=== PATIENT | female | born 1950 ===

== ENCOUNTER 2022-09-18 23:01 | Emergency (ER) | payer MEDICARE, MEDICAID, SELFPAY ==
[2022-09-18 23:02] VITALS: BP 164/70; BP 168/96; PULSE 75; PULSE 98; RESP 18; TEMP 36.8; O2SAT 96; O2SAT 98; BMI 30.5
--- NOTE | 2022-09-18 23:13 | ECG_ITS ---
Test Reason : CHEST PAIN Blood Pressure : / mmHG Vent. Rate : 071 BPM Atrial Rate : 071 BPM P-R Int : 178 ms QRS Dur : 072 ms QT Int : 412 ms P-R-T Axes : 005 029 030 degrees QTc Int : 447 ms Normal sinus rhythm Normal ECG No previous ECGs available Referred By: Generic ED Physician Electronically Signed By:Antelmo Sauer
[2022-09-18 23:34] LABS: Basophils Percent Auto 0.7 % (0-2); Eosinophils Absolute Auto 0.2 X10*3/uL (0.0-0.4); Eosinophils Percent Auto 4.1 % (0-4); Hematocrit 39.8 % (37.0-47.0); Imm Gran Abs Auto 0.01 X10*3/uL (0.00-0.03); Imm Gran Pct Auto 0.2 % (0.0-0.4); Lymphocytes Absolute Auto 2.6 X10*3/uL (1.2-4.9); Lymphocytes Percent Auto 44.7 % (20-40); MANUAL DIFF FLAG NO; Mean Corpuscular HGB Conc 32.7 g/dl (31.0-35.0); Mean Corpuscular Hemoglobin 25.7 pg (27.0-33.0); Mean Corpuscular Volume 78.8 fL (80.0-98.0); Mean Platelet Volume 9.2 fL (9.4-12.3); Monocytes Absolute Auto 0.7 X10*3/uL (0.1-1.2); Monocytes Percent Auto 11.3 % (2-11); Neutrophils Absolute Auto 2.3 x10*3/uL (2.0-8.3); Platelet Count 194 X10*3/uL (160-400); Red Blood Count 5.05 X10*6/uL (4.20-5.50); Red Cell Distribution Width 13.7 % (11.0-16.0); White Blood Count 5.8 X10*3/uL (4.8-10.8)
[2022-09-18 23:54] LABS: Alanine Aminotransferase 30 U/L (0-31); Alkaline Phosphatase 93 U/L (39-117); Anion Gap 12 (12-20); Aspartate Amino Transferase 30 U/L (5-31); Bilirubin Total 0.6 mg/dL (0.0-1.0); Blood Urea Nitrogen 15 mg/dL (9-16); Calcium 9.1 mg/dL (8.4-10.2); Carbon Dioxide 25 mmol/L (22-29); Chloride 109 mmol/L (96-108); Creatinine Clr Calc Pharmacy 65.6; Estimated Glomerular Filt Rate > 60; Glucose Random 115 mg/dL (60-115); Sodium 142 mmol/L (135-145)
[2022-09-19] VITALS: BP 159/77; PULSE 66; RESP 15; O2SAT 96
[2022-09-19 00:11] LABS: Troponin-I High Sensitivity 2.7 ng/L (<3.5-17.0)
[2022-09-19 00:42] VITALS: BP 162/77; PULSE 64; RESP 14; O2SAT 96
[2022-09-19 00:43] VITALS: BP 162/76; PULSE 72; RESP 16
[2022-09-19 00:43] LABS: Appearance Urine Clear; Color Urine Yellow; Glucose Urine UA Negative (Negative); Leukocyte Esterase Urine Negative (Negative); Nitrite Urine Negative (Negative); Specific Gravity - Urine <= 1.005 (1.005-1.025); Urine Blood Negative (Negative); Urine Ketones Negative (Negative); Urine Protein Negative (Neg-Trace)
--- NOTE | 2022-09-19 00:57 | ED.CHESTPAIN ---
HPI - Chest Pain General Chief Complaint: Chest Pain Stated Complaint: hypertension Time Seen by Provider: 09/19/22 00:39 Source: patient Mode of arrival: ambulatory Limitations: no limitations History of Present Illness HPI narrative: Patient comes to the emergency room complaining of high blood pressure. Patient states that yesterday she was feeling flushed, some neck pressure, patient's blood pressure was checked and it was above 160. Today, patient had similar symptoms, patient received 2 doses of baby aspirin. Patient denies chest pain or shortness of breath. No syncopal episodes Related Data Previous Rx's Medication Instructions Recorded hydrochlorothiazide 12.5 mg tablet 12.5 mg PO DAILY #30 tabs 09/19/22 Allergies Allergy/AdvReac Type Severity Reaction Status Date / Time No Known Allergies Allergy Verified 09/18/22 23:13 Review of Systems Review of Systems: Constitutional : No Weight loss, No Fever, No Chills, No Night Sweats, No Fatigue, No Malaise ENT/Mouth : No Hearing loss, No Ear Pain, No Nasal Congestion, No Sinus Pain, No Hoarseness, No sore throat, No Rhinorrhea, No Swallowing Difficulty Eyes: No Eye Pain, No Swelling, No Redness, No Foreign Body, No Discharge, No Vision Changes Cardiovascular : No Chest Pain, No SOB, No Dyspnea on Exertion, No Orthopnea, No Edema, No Palpitations Respiratory : No Cough, No Sputum, No Wheezing, No Smoke Exposure, No Dyspnea Gastrointestinal : No Nausea, No Vomiting, No Diarrhea, No Constipation, No abdominal Pain, No Hematochezia, No Melena Genitourinary : no irregular bleeding, No Dysuria, No Urinary Frequency, No Hematuria, No Urinary Incontinence, No Urgency, No Flank Pain, No Urinary Flow Changes, No Hesitancy Musculoskeletal : No joint pain, No Myalgias, No Joint Swelling Skin : No Skin Lesions, No rash Neuro : No Weakness, No Numbness, No Paresthesias, No Loss of Consciousness, No Dizziness, No Headache Psych : No Anxiety/Panic, No Depression, No SI/HI/AH/VH, No Social Issues, Heme/Lymph: No Bruising, No Bleeding,No Lymphadenopathy Endocrine : No Polyuria, No Polydipsia, No Temperature Intolerance Physical Exam Vital Signs: Vital Signs: Last Vital Signs Temp 98.2 F 09/18/22 23:02 Pulse 72 09/19/22 00:43 Resp 16 09/19/22 00:43 BP 162/76 H 09/19/22 00:43 Pulse Ox 96 09/19/22 00:42 O2 Del Method Room Air 09/19/22 00:43 BMI result Body Mass Index 30.5 Const: Other: Appearance: Alert. Oriented X3. No acute distress. Well-appearing Eyes: Pupils equal, round and reactive to light. ENT: Pharynx normal. Neck: Normal inspection. Neck supple. No lymph nodes noted. No crepitus CVS: Normal heart rate and rhythm. Pulses normal. Normal S1 and S2 Respiratory: No respiratory distress. Breath sounds normal. No Wheezing. No rales Abdomen: Soft and nontender. No rigidity. No distention. Skin: Skin warm and dry. Normal skin color. Normal skin turgor. Extremities: No lower extremity edema. No Lacerations. No Rash Neuro: Oriented X 3. No motor deficit. No sensory deficit. Moving all extremities. No slurred speech. CN 2 through 12 grossly intact Psych: calm, cooperative, normal affect Medical Decision Making Medical Decision Making MDM Narrative: -patient has had elevated blood pressure in at least 3 different settings. Patient concerned that her blood pressure is elevated which is new for her. -discussed with the patient the option of having her keep a log of her blood pressures and then following up with her primary care physician versus starting a mild blood pressure medication, record her blood pressures and still have her follow-up with her primary care physicians. The patient opted to start medication. In the ED, patient received 12.5 mg of hydrochlorothiazide. -normal sinus rhythm, heart rate 71, no ST segment depression elevation, nonspecific T-wave inversion in lead 3, QTC 447 Lab Data 09/18/22 23:25 09/18/22 23:25 Labs: Lab Results 09/18/22 09/18/22 09/18/22 Range/Units 23:25 23:25 23:25 WBC 5.8 (4.8-10.8) X10*3/uL RBC 5.05 (4.20-5.50) X10*6/uL Hgb 13.0 (12.0-16.0) g/dl Hct 39.8 (37.0-47.0) % MCV 78.8 L (80.0-98.0) fL MCH 25.7 L (27.0-33.0) pg MCHC 32.7 (31.0-35.0) g/dl RDW 13.7 (11.0-16.0) % Plt Count 194 (160-400) X10*3/uL MPV 9.2 L (9.4-12.3) fL Immature Gran % (Auto) 0.2 (0.0-0.4) % Neut % (Auto) 39.0 L (45-73) % Lymph % (Auto) 44.7 H (20-40) % [place] % (Auto) 11.3 H (2-11) % Eos % (Auto) 4.1 H (0-4) % Baso % (Auto) 0.7 (0-2) % Lymph # (Auto) 2.6 (1.2-4.9) X10*3/uL [place] # (Auto) 0.7 (0.1-1.2) X10*3/uL Eos # (Auto) 0.2 (0.0-0.4) X10*3/uL Baso # (Auto) 0.0 (0.0-0.2) X10*3/uL Abs Immat Gran (auto) 0.01 (0.00-0.03) X10*3/uL Absolute Neuts (auto) 2.3 (2.0-8.3) x10*3/uL Absolute Nucleated RBC 0.000 (0.0-0.012) X10*3/uL Nucleated RBC % (auto) 0.0 (0.0-0.2) /100WBC Sodium 142 (135-145) mmol/L Potassium 4.0 (3.3-5.1) mmol/L Chloride 109 H (96-108) mmol/L Carbon Dioxide 25 (22-29) mmol/L Anion Gap 12 (12-20) BUN 15 (9-16) mg/dL Creatinine 0.74 (0.5-1.4) mg/dL Estim Creat Clear Calc 65.6 Estimated GFR > 60 Random Glucose 115 (60-115) mg/dL Calcium 9.1 (8.4-10.2) mg/dL Total Bilirubin 0.6 (0.0-1.0) mg/dL AST 30 (5-31) U/L ALT 30 (0-31) U/L Alkaline Phosphatase 93 (39-117) U/L Troponin I High Sens 2.7 (<3.5-17.0) ng/L Total Protein 7.0 (6.5-8.0) g/dL Albumin 4.0 (3.5-5.0) g/dL Urine Color Urine Appearance Urine pH (5.0-9.0) Ur Specific [place] (1.005-1.025) Urine Protein (Neg-Trace) mg/dL Urine Glucose (UA) (Negative) mg/dL Urine Ketones (Negative) mg/dL Urine Blood (Negative) Urine Nitrite (Negative) Ur Leukocyte Esterase (Negative) 09/19/22 Range/Units 00:35 WBC (4.8-10.8) X10*3/uL RBC (4.20-5.50) X10*6/uL Hgb (12.0-16.0) g/dl Hct (37.0-47.0) % MCV (80.0-98.0) fL MCH (27.0-33.0) pg MCHC (31.0-35.0) g/dl RDW (11.0-16.0) % Plt Count (160-400) X10*3/uL MPV (9.4-12.3) fL Immature Gran % (Auto) (0.0-0.4) % Neut % (Auto) (45-73) % Lymph % (Auto) (20-40) % [place] % (Auto) (2-11) % Eos % (Auto) (0-4) % Baso % (Auto) (0-2) % Lymph # (Auto) (1.2-4.9) X10*3/uL [place] # (Auto) (0.1-1.2) X10*3/uL Eos # (Auto) (0.0-0.4) X10*3/uL Baso # (Auto) (0.0-0.2) X10*3/uL Abs Immat Gran (auto) (0.00-0.03) X10*3/uL Absolute Neuts (auto) (2.0-8.3) x10*3/uL Absolute Nucleated RBC (0.0-0.012) X10*3/uL Nucleated RBC % (auto) (0.0-0.2) /100WBC Sodium (135-145) mmol/L Potassium (3.3-5.1) mmol/L Chloride (96-108) mmol/L Carbon Dioxide (22-29) mmol/L Anion Gap (12-20) BUN (9-16) mg/dL Creatinine (0.5-1.4) mg/dL Estim Creat Clear Calc Estimated GFR Random Glucose (60-115) mg/dL Calcium (8.4-10.2) mg/dL Total Bilirubin (0.0-1.0) mg/dL AST (5-31) U/L ALT (0-31) U/L Alkaline Phosphatase (39-117) U/L Troponin I High Sens (<3.5-17.0) ng/L Total Protein (6.5-8.0) g/dL Albumin (3.5-5.0) g/dL Urine Color Yellow Urine Appearance Clear Urine pH 6.0 (5.0-9.0) Ur Specific [place] <= 1.005 (1.005-1.025) Urine Protein Negative (Neg-Trace) mg/dL Urine Glucose (UA) Negative (Negative) mg/dL Urine Ketones Negative (Negative) mg/dL Urine Blood Negative (Negative) Urine Nitrite Negative (Negative) Ur Leukocyte Esterase Negative (Negative) Discharge Plan Discharge Clinical Impression: Hypertension Patient Disposition: Home, Self-Care Instructions: Hypertension (ED) Additional Instructions: Please follow-up with your primary care physician tomorrow. If you have any worsening or new symptoms, please return to the emergency room or call 911 Prescriptions: New hydrochlorothiazide 12.5 mg tablet 12.5 mg PO DAILY Qty: 30 0RF
[2022-09-19] MEDS: hydroCHLOROthiazide 12.5 MG TABLET PO (01:12)
--- OUTSIDE RECORDS SUMMARY | 2022-09-19 01:17 | XMS_ITS | Continuity of Care Document ---
Author Name Unknown Organization [facility] ter Address [address] [place] [id number] Care Team Providers Care Small Engine Technician Name Role Phone Not on Staff, PCP Primary Care Physician Unavail able Encounter [facility] Date(s): 09/24/21 - 09/27/[address] [id number]- Encounter Diagnosis Dizziness(Final) - 09/25/21 Knee pain(Final) - 09/27/21 Discharge Disposition: A-D/C Home Attending Physician: Simona Ramos MD Admitting Physician: Tammi Watson MD Referring Physician: Not on Staff, Referring MD Allergies, Adverse Reactions, Alerts No Known Allergies Medications Medrol Dosepak 4 mg oral tablet 1 pack/packet, By Mouth, Daily, for 6 days, as directed on package labeling, # 21 tablet, 5 Refills, Acute 11/02/21 9:29:00 EDT, 09/27/21 9:29:00 EDT, Tablet, [facility], Partial fill upon patient request if the prescription is for a tommie... Start Date: 09/27/21 Stop Date: 11/02/21 Status: Ordered Outpatient vestibular therapy Outpatient vestibular therapy, See Instructions, # 1 each, Refills 0, Tot. Refills 0, Maintenance, Outpatient vestibular therapy, 09/27/21 9:30:00 EDT, Supply Start Date: 09/27/21 Status: Ordered Results Radiology Reports * Exam Date Time Procedure Performing Provider Status 09/25/21 3:27 PM Chest 2 Views Frontal and Lat Gelacio Coburn; Memo (Verified) Notes: (Chest 2 Views Frontal and Lat) Reason For Exam: Shortness of Breath RESULT: Chest 2 Views Frontal and Lat Chest 2 Views Frontal and Lat Reason: Shortness of Breath; Clinical Question(s): CHF COMPARISON: None. FINDINGS: LINES AND TUBES: None. LUNGS AND PLEURA: Clear lungs. Normal pulmonary vascularity. No pleural effusion. No pneumothorax. HEART, MEDIASTINUM AND ORESTES: Heart is normal in size. Normal upper mediastinal and hilar contour. BONES AND SOFT TISSUES: No acute abnormality. Minimal right-sided calcific tendinosis. IMPRESSION: No acute abnormality. WSN: [id number] Ordering Physician: Elsi Quiñonez Dictated By: Trevor Carlisle MD Dictated Date/Time: 09/25/21 4:19 pm Reviewed By: Trevor Carlisle MD Signed By: Trevor Carlisle MD Signed Date/Time: 09/25/21 4:19 pm Transcribed By: GIOVANNA Transcribed Date/Time: 09/25/21 4:18 pm * Exam Date Time Procedure Performing Provider Status 09/24/21 7:05 PM Ankle Min 3 Views Left Ava Pham en; Auth (Verified) Notes: (Ankle Min 3 Views Left) Reason For Exam: Pain RESULT: Ankle Min 3 Views Left Knee 1 or 2 Views Right, Ankle Min 3 Views Left, 2 views Hx of Present Illness: Left knee and ankle pain. COMPARISON: None. FINDINGS: KNEE: There is no fracture or dislocation in the knee. There is significant narrowing of the medial compartment with marginal osteophytes along the lateral compartment. Minimal suprapatellar effusion is noted. Calcific density along the posterior margin of the knee joint may represent a loose body or perhaps sequela of previous trauma. ANKLE: There is no fracture or dislocation in the ankle. The ankle mortise and talar dome appear normal. Focal soft tissue swelling is seen adjacent to the medial malleolus. Small plantar calcaneal spur is seen. Prominent spurring is seen along the dorsal midfoot. IMPRESSION: 1. No acute fracture in the ankle or foot. 2. Degenerative changes are seen in the knee, most pronounced in the medial compartment. Possible loose body noted as described. Probable trace suprapatellar fluid. 3. Soft tissue swelling adjacent medial malleolus. WSN: [id number] Ordering Physician: Michelle Mckeon Dictated By: Trang Marsh MD Dictated Date/Time: 09/24/21 7:19 pm Reviewed By: Trang Marsh MD Signed By: Trang Marsh MD Signed Date/Time: 09/24/21 7:19 pm Transcribed By: GIOVANNA Transcribed Date/Time: 09/24/21 7:15 pm * Exam Date Time Procedure Performing Provider Status 09/24/21 7:05 PM Knee 1 or 2 Views Right Jose Pham eedonna; Auth (Verified) Notes: (Knee 1 or 2 Views Right) Reason For Exam: Pain RESULT: Knee 1 or 2 Views Right Knee 1 or 2 Views Right, Ankle Min 3 Views Left, 2 views Hx of Present Illness: Left knee and ankle pain. COMPARISON: None. FINDINGS: KNEE: There is no fracture or dislocation in the knee. There is significant narrowing of the medial compartment with marginal osteophytes along the lateral compartment. Minimal suprapatellar effusion is noted. Calcific density along the posterior margin of the knee joint may represent a loose body or perhaps sequela of previous trauma. ANKLE: There is no fracture or dislocation in the ankle. The ankle mortise and talar dome appear normal. Focal soft tissue swelling is seen adjacent to the medial malleolus. Small plantar calcaneal spur is seen. Prominent spurring is seen along the dorsal midfoot. IMPRESSION: 1. No acute fracture in the ankle or foot. 2. Degenerative changes are seen in the knee, most pronounced in the medial compartment. Possible loose body noted as described. Probable trace suprapatellar fluid. 3. Soft tissue swelling adjacent medial malleolus. WSN: [id number] Ordering Physician: Michelle Mckeon Dictated By: Trang Marsh MD Dictated Date/Time: 09/24/21 7:19 pm Reviewed By: Trang Marsh MD Signed By: Trang Marsh MD Signed Date/Time: 09/24/21 7:19 pm Transcribed By: GIOVANNA Transcribed Date/Time: 09/24/21 7:15 pm Vital Signs Most recent to oldest [Reference Range]: 1 2 3 Oxygen Saturation [94-100 %] 96 % (09/27/21 8:40 AM) 98 % (09/27/21 4:12 AM) 97 % (09/27/21 12:00 AM) Pulse Rate [55-90 bpm] 77 bpm (09/27/21 8:40 AM) 67 bpm (09/27/21 4:12 AM) 83 bpm (09/27/21 12:00 AM) Blood Pressure [90-138/55-84 mm Hg] 116/52mm Hg (09/27/21 8:40 AM) 114/58mm Hg (09/27/21 4:12 AM) 117/56mm Hg (09/27/21 12:00 AM) Respiratory Rate [16-30 br/min] 18 br/min (09/27/21 8:40 AM) 20 br/min (09/27/21 4:12 AM) 20 br/min (09/27/21 12:00 AM) Temperature [96.8-100.4 DegF] 97.7 DegF (09/27/21 8:40 AM) 97.4 DegF (09/27/21 4:12 AM) 98.3 DegF (09/27/21 12:00 AM) Mode of Delivery (Oxygen) Room air (09/27/21 8:40 AM) Room air (09/27/21 4:12 AM) Room air (09/27/21 12:00 AM) Blood pressure sites Arm, left (09/27/21 8:40 AM) Arm, right (09/27/21 4:12 AM) Arm, right (09/27/21 12:00 AM) Temperature Route Oral (09/27/21 8:40 AM) Oral (09/27/21 4:12 AM) Oral (09/27/21 12:00 AM)
== END 2022-09-19 01:27 | disposition home or self-care (01) ==
LOC: HO.ED 09-19 01:15
PROVIDERS: Emergency Provider Emergency Medicine
DX: I10 Essential (primary) hypertension (principal)
CPT/HCPCS: 36415; 80053; 81003; 84484; 85025; 93005; 99283; 99284

== ENCOUNTER 2022-12-21 21:11 | Emergency (ER) | payer MEDICARE, SELFPAY ==
--- NOTE | 2022-12-21 21:13 | ECG_ITS ---
Test Reason : CHEST PAIN Blood Pressure : / mmHG Vent. Rate : 086 BPM Atrial Rate : 086 BPM P-R Int : 192 ms QRS Dur : 070 ms QT Int : 374 ms P-R-T Axes : 049 015 049 degrees QTc Int : 447 ms Normal sinus rhythm with sinus arrhythmia Normal ECG When compared with ECG of 18-SEP-2022 23:16, No significant change was found Referred By: Generic ED Physician Electronically Signed By:LEA CAVAZOS
[2022-12-21 21:18] VITALS: BP 186/90; PULSE 100; O2SAT 98
[2022-12-21 21:31] VITALS: BP 164/74; PULSE 94; RESP 16; TEMP 36.8; O2SAT 98; BMI 28.4
--- NOTE | 2022-12-21 21:33 | ED_ITS ---
HPI - Chest Pain General Chief Complaint: Chest Pain Stated Complaint: Sharp chest pain x3hrs,weak,dizzy,nausea Time Seen by Provider: 12/21/22 21:21 Source: patient Mode of arrival: ambulatory Limitations: no limitations History of Present Illness HPI narrative: Patient with history of borderline hypertension not on any medication increased anxiety came from [facility] 1 of her son and her son still in [facility] under increased stress and felt sharp chest pain while walking today , checked the blood pressure at home was 180/70 patient got worried and came to ER no chest pain on arrival no shortness of breath no palpitation repeat blood pressure was 147/77 with pulse rate of 94 pulse ox 98% room air Related Data Previous Rx's Medication Instructions Recorded hydrochlorothiazide 12.5 mg tablet 12.5 mg PO DAILY #30 tabs 09/19/22 lorazepam 1 mg tablet (Ativan) 1 mg PO BEDTIME PRN anxiety #20 12/21/22 tabs Allergies Allergy/AdvReac Type Severity Reaction Status Date / Time No Known Allergies Allergy Verified 09/18/22 23:13 Review of Systems Review of Systems: Yes all other systems are reviewed and are negative [facility] Social History Social History Advance Directives: No Advance Directives Information Provided: No Physical Exam Vital Signs: Vital Signs: Last Vital Signs Temp 98.0 F 12/21/22 21:41 Pulse 94 12/21/22 21:41 Resp 16 12/21/22 21:41 BP 147/77 H 12/21/22 21:41 Pulse Ox 98 12/21/22 21:41 O2 Del Method Room Air 12/21/22 21:41 BMI result Body Mass Index 28.4 Appearance: Alert. Oriented X3. No acute distress. Eyes: PERRLA, No Nystagmus ENT: Pharynx normal. Oral Mucosa moist Neck: Normal inspection. Neck supple. CVS: Normal heart rate and rhythm. Pulses normal. Respiratory: No respiratory distress. Equal air entry bilateral, no wheezing/rales/rhonchi Abdomen: Soft and nontender. Bowel sounds are present, no mass palpable, no CVA tenderness Skin: Skin warm and dry. Normal skin color. Normal skin turgor. Extremities: No lower extremity edema. No calf tenderness Neuro: Oriented X 3. No motor deficit. No sensory deficit.No cerebellar signs , cranial nerves II-XII intact Medications Administered Discontinued Medications Generic Name Dose Route Start Last Admin Trade Name Yani PRN Reason Stop Dose Admin Lorazepam 1 mg 12/21/22 22:10 12/21/22 22:53 Lorazepam 1 Mg Tablet PO 12/21/22 22:11 1 mg ONCE ONE Administration Medical Decision Making Medical Decision Making [facility] Narrative: Patient with borderline hypertension came atypical chest and anxiety labs are stable discharge patient home on Ativan Differential Diagnosis Differential Diagnoses: The differential diagnosis associated with the presentation includes Anxiety/ACS/panic episode Lab Data [facility] Lab Attestation statement: I reviewed the patient's lab results. 12/21/22 21:40 12/21/22 21:40 Labs: Lab Results 12/21/22 12/21/22 12/21/22 Range/Units 21:40 21:40 21:40 WBC 6.0 (4.8-10.8) X10*3/uL RBC 5.27 (4.20-5.50) X10*6/uL Hgb 13.6 (12.0-16.0) g/dl Hct 42.0 (37.0-47.0) % MCV 79.7 L (80.0-98.0) fL MCH 25.8 L (27.0-33.0) pg MCHC 32.4 (31.0-35.0) g/dl RDW 13.6 (11.0-16.0) % Plt Count 201 (160-400) X10*3/uL MPV 9.9 (9.4-12.3) fL Immature Gran % (Auto) 0.7 H (0.0-0.4) % Neut % (Auto) 46.1 (45-73) % Lymph % (Auto) 37.4 (20-40) % [place] % (Auto) 11.5 H (2-11) % Eos % (Auto) 3.5 (0-4) % Baso % (Auto) 0.8 (0-2) % Lymph # (Auto) 2.3 (1.2-4.9) X10*3/uL [place] # (Auto) 0.7 (0.1-1.2) X10*3/uL Eos # (Auto) 0.2 (0.0-0.4) X10*3/uL Baso # (Auto) 0.1 (0.0-0.2) X10*3/uL Abs Immat Gran (auto) 0.04 H (0.00-0.03) X10*3/uL Absolute Neuts (auto) 2.8 (2.0-8.3) x10*3/uL Absolute Nucleated RBC 0.000 (0.0-0.012) X10*3/uL Nucleated RBC % (auto) 0.0 (0.0-0.2) /100WBC Sodium 142 (135-145) mmol/L Potassium 4.5 (3.3-5.1) mmol/L Chloride 108 (96-108) mmol/L Carbon Dioxide 25 (22-29) mmol/L Anion Gap 14 (12-20) BUN 17 H (9-16) mg/dL Creatinine 0.87 (0.5-1.4) mg/dL Estim Creat Clear Calc 59.7 Estimated GFR > 60 Random Glucose 115 (60-115) mg/dL Calcium 9.6 (8.4-10.2) mg/dL Troponin I High Sens < 2.7 (<3.5-17.0) ng/L Independent Interpretation I performed an independent interpretation of an: EKG Interpretation: Normal sinus rhythm heart rate 86 beats per minute normal interval normal axis no acute ST wave changes impression normal EKG Discharge Plan Discharge Clinical Impression: Anxiety, Atypical chest pain Patient Disposition: Home, Self-Care Instructions: Chest Pain (ED), Anxiety (ED) Additional Instructions: Stop caffeine intake Take medication for anxiety/sleep Follow the PCP Prescriptions: New lorazepam [Ativan] 1 mg tablet 1 mg PO BEDTIME PRN (Reason: anxiety) Qty: 20 0RF No Action hydrochlorothiazide 12.5 mg tablet 12.5 mg PO DAILY Qty: 30 0RF
[2022-12-21 21:41] VITALS: BP 147/77; PULSE 94; RESP 16; TEMP 36.7; O2SAT 98
--- NOTE | 2022-12-21 21:43 | MHC.EDTECH ---
patient came in via ems ,ekg taken and was read by provider ,pt vitals sign taken and was hooked up to retail beauty specialist ,pt friend at bedside ,pt is comfortable on pain at this time ,will continue to monitor .
[2022-12-21 21:45] LABS: MANUAL DIFF FLAG NO
[2022-12-21 21:47] LABS: Basophils Absolute Auto 0.1 X10*3/uL (0.0-0.2); Basophils Percent Auto 0.8 % (0-2); Eosinophils Absolute Auto 0.2 X10*3/uL (0.0-0.4); Eosinophils Percent Auto 3.5 % (0-4); Hemoglobin 13.6 g/dl (12.0-16.0); Imm Gran Abs Auto 0.04 X10*3/uL (0.00-0.03); Imm Gran Pct Auto 0.7 % (0.0-0.4); Lymphocytes Absolute Auto 2.3 X10*3/uL (1.2-4.9); Lymphocytes Percent Auto 37.4 % (20-40); Mean Corpuscular HGB Conc 32.4 g/dl (31.0-35.0); Mean Corpuscular Hemoglobin 25.8 pg (27.0-33.0); Mean Corpuscular Volume 79.7 fL (80.0-98.0); Mean Platelet Volume 9.9 fL (9.4-12.3); Monocytes Absolute Auto 0.7 X10*3/uL (0.1-1.2); Monocytes Percent Auto 11.5 % (2-11); Neutrophils Absolute Auto 2.8 x10*3/uL (2.0-8.3); Neutrophils Percent Auto 46.1 % (45-73); Platelet Count 201 X10*3/uL (160-400); Red Blood Count 5.27 X10*6/uL (4.20-5.50); Red Cell Distribution Width 13.6 % (11.0-16.0)
[2022-12-21 21:59] LABS: Anion Gap 14 (12-20); Blood Urea Nitrogen 17 mg/dL (9-16); Calcium 9.6 mg/dL (8.4-10.2); Carbon Dioxide 25 mmol/L (22-29); Chloride 108 mmol/L (96-108); Creatinine Clr Calc Pharmacy 59.7; Estimated Glomerular Filt Rate > 60; Glucose Random 115 mg/dL (60-115); Potassium 4.5 mmol/L (3.3-5.1); Sodium 142 mmol/L (135-145)
[2022-12-21 22:11] LABS: Troponin-I High Sensitivity < 2.7 ng/L (<3.5-17.0)
[2022-12-21] MEDS: LORazepam 1 MG TABLET PO (22:53)
== END 2022-12-21 23:10 | disposition home or self-care (01) ==
PROVIDERS: Emergency Provider Internal Medicine
DX: F41.9 Anxiety disorder, unspecified (principal); R07.89 Other chest pain; I10 Essential (primary) hypertension; Z72.89 Other problems related to lifestyle; Z63.4 Disappearance and death of family member
CPT/HCPCS: 36415; 80048; 84484; 85025; 93005; 99284

== ENCOUNTER 2023-05-13 02:36 | Emergency (ER) | payer MEDICARE, SELFPAY ==
--- NOTE | 2023-05-13 | ECG_ITS ---
Test Reason : SOB Blood Pressure : / mmHG Vent. Rate : 079 BPM Atrial Rate : 079 BPM P-R Int : 192 ms QRS Dur : 076 ms QT Int : 390 ms P-R-T Axes : 050 046 057 degrees QTc Int : 447 ms Normal sinus rhythm Normal ECG When compared with ECG of 21-DEC-2022 21:17, No significant change was found Referred By: Generic ED Physician Electronically Signed By:STEVAN ARORA MD
--- NOTE | ~2023-05-13 | XR_ITS ---
EXAMINATION: XR CHEST, 2 VIEWS CLINICAL INFORMATION: Shortness of breath COMPARISON: None. TECHNIQUE: PA and lateral views of the chest were obtained. FINDINGS: Bronchial wall thickening is present in the perihilar regions bilaterally. A few patchy airspace opacities are also noted in the perihilar regions, right side greater than left. No dense consolidation. No pneumothorax or pleural effusion. Cardiac and mediastinal contours are normal. Pulmonary vasculature is unremarkable. Trachea is midline. No acute fractures are identified. Chronic inferior endplate compression deformity is suspected in the lower thoracic spine, likely at the level of T10. XR/XR chest 2V IMPRESSION: Bronchial wall thickening can be seen with a small airways process such as asthma or atypical/viral infection. Interstitial pulmonary edema is also possible. A few patchy airspace opacities in the perihilar regions may correspond to atelectasis or early consolidation.
[2023-05-13 02:47] VITALS: BP 130/69; BP 142/70; PULSE 88; PULSE 90; RESP 18; TEMP 36.7; O2SAT 94; O2SAT 96; BMI 29.5
[2023-05-13 03:42] LABS: MANUAL DIFF FLAG NO
[2023-05-13 03:44] LABS: Basophils Percent Auto 0.4 % (0-2); Eosinophils Absolute Auto 0.2 X10*3/uL (0.0-0.4); Eosinophils Percent Auto 3.3 % (0-4); Hematocrit 38.3 % (37.0-47.0); Hemoglobin 12.2 g/dl (12.0-16.0); Imm Gran Abs Auto 0.02 X10*3/uL (0.00-0.03); Imm Gran Pct Auto 0.3 % (0.0-0.4); Lymphocytes Percent Auto 30.1 % (20-40); Mean Corpuscular HGB Conc 31.9 g/dl (31.0-35.0); Mean Corpuscular Hemoglobin 25.9 pg (27.0-33.0); Mean Corpuscular Volume 81.3 fL (80.0-98.0); Mean Platelet Volume 9.7 fL (9.4-12.3); Monocytes Absolute Auto 0.8 X10*3/uL (0.1-1.2); Monocytes Percent Auto 11.9 % (2-11); Neutrophils Absolute Auto 3.6 x10*3/uL (2.0-8.3); Platelet Count 171 X10*3/uL (160-400); Red Blood Count 4.71 X10*6/uL (4.20-5.50); Red Cell Distribution Width 13.8 % (11.0-16.0); White Blood Count 6.7 X10*3/uL (4.8-10.8)
[2023-05-13 03:54] LABS: Anion Gap 4 (12-20); Blood Urea Nitrogen 17 mg/dL (9-16); Calcium 9.2 mg/dL (8.4-10.2); Carbon Dioxide 24 mmol/L (22-29); Chloride 111 mmol/L (96-108); Estimated Glomerular Filt Rate 56; Glucose Random 153 mg/dL (60-115); Potassium 5.8 mmol/L (3.3-5.1); Sodium 133 mmol/L (135-145)
[2023-05-13 04:19] LABS: Influenza A PCR NEGATIVE (Negative); Influenza B PCR NEGATIVE (Negative); Resp Syncy Virus RNA Qual PCR NEGATIVE (Negative); SARS COV2 PCR INHOUSE NEGATIVE (Negative)
--- NOTE | 2023-05-13 04:41 | ED_ITS ---
HPI - SOB/Dyspnea General Chief Complaint: Dyspnea Stated Complaint: DIFF BREATHING Time Seen by Provider: 05/13/23 03:21 History of Present Illness HPI Narrative: Patient is a 72-year-old female presents today with having wheezing coughing shortness of breath. Patient used her granddaughter's inhaler. Symptom improved slightly. She recently traveled to [place]. Patient denies any leg swelling. No history of congestive heart failure no history of heart attacks in the past. Patient from home. Related Data Previous Rx's Medication Instructions Recorded hydrochlorothiazide 12.5 mg tablet 12.5 mg PO DAILY #30 tabs 09/19/22 lorazepam 1 mg tablet (Ativan) 1 mg PO BEDTIME PRN anxiety #20 12/21/22 tabs albuterol sulfate 90 mcg/actuation 2 inh inhalation Q6H PRN shortness 05/13/23 breath activated powder inhaler of breath #1 ea azithromycin 250 mg tablet See Rx Instructions PO .COMPLEX 05/13/23 upper resp infection #6 tabs prednisone 20 mg tablet 40 mg (2 x 20 mg) PO DAILY #10 tabs 05/13/23 Allergies Allergy/AdvReac Type Severity Reaction Status Date / Time No Known Allergies Allergy Verified 05/13/23 02:52 Review of Systems 2 Review of Systems: Positive coughing positive shortness of breath PMFSH Past Medical History Attestation statement: The following information was validated with the patient. Onset Date is defined in the Problem List Problems that require an onset date and time if occurred within 24 hrs of arrival to the ED Aortic Dissection and Rupture; Neurologic impairment; Cardiopulmonary Arrest; Endotracheal Intubation; Insertion or Replacement of Mechanical Circulatory Assist Device Social History Social History Advance Directives: No Advance Directives Information Provided: Yes Physical Exam 2 Vital Signs: Vital Signs: Last Vital Signs Temp 98.1 F 05/13/23 02:47 Pulse 90 05/13/23 05:07 Resp 18 05/13/23 05:07 BP 130/69 05/13/23 02:47 Pulse Ox 94 05/13/23 02:47 O2 Del Method Room Air 05/13/23 02:47 BMI result Body Mass Index 29.5 Appearance: Alert. Oriented X3. No acute distress. Eyes: Pupils equal, round and reactive to light. ENT: Pharynx normal. Neck: Normal inspection. Neck supple. No lymph nodes noted. No crepitus CVS: Normal heart rate and rhythm. Pulses normal. Normal S1 and S2 Respiratory: Positive expiratory wheezing bilaterally Abdomen: Soft and nontender. No rigidity. No distention. good BS x4 Skin: Skin warm and dry. Normal skin color. Normal skin turgor. Extremities: No lower extremity edema. Neurovascular intact to all extremities. No Lacerations. No Rash Neuro: Oriented X 3. No motor deficit. No sensory deficit. Moving all extermities. No slurred speech Medications Administered Discontinued Medications Generic Name Dose Route Start Last Admin Trade Name Freq PRN Reason Stop Dose Admin Albuterol Sulfate 5 mg 05/13/23 04:37 05/13/23 05:07 Albuterol Sulfate (0.083%) 2.5 Mg/3 Ml Vial.Neb INHALE 05/13/23 04:38 5 mg ONCE ONE Administration Albuterol/Ipratropium 3 ml 05/13/23 04:37 05/13/23 05:07 Albuterol/Iprat 2.5/0.5mg 3 Ml Ampul.Neb INHALE 05/13/23 04:38 3 ml ONCE ONE Administration Methylprednisolone Sodium Succinate 125 mg 05/13/23 04:37 05/13/23 05:10 Methylprednisolone Sod Succ 125 Mg/2 Ml Vial IVPUSH 05/13/23 04:38 125 mg ONCE ONE Administration Medical Decision Making Medical Decision Making [facility] Narrative: 72-year-old no history of smoking presents today with having coughing wheezing shortness of breath. My interpretation of patient's EKG showed a sinus rhythm heart rate is 80 OH QRS QTC within normal limits is no acute ST segment elevation. Patient's chest x-ray showed no focal infiltrate no signs of congestive heart failure. A BMP was ordered as patient is 1st time wheezing at the age of 72. A dose of steroids given. Albuterol neb given. Patient recently traveled to [place] a D-dimer was ordered to rule out the possibility of PE in the setting of low risk. Patient has wheezing less likely it is secondary to a blood clot. O2 sat is 96% on room air. Patient is flu RSV COVID were all negative. Currently in stable condition Patient's D-dimer was negative. In the setting of low risk unlikely to have pulmonary emboli. Patient's chest x-ray showed no focal infiltrate by my interpretation. Patient given neb treatment and steroid with good relief of symptoms. O2 sat remained at 96% on room air. Will discharge patient home on a tapered course of steroids an additional albuterol to take home. Close follow- up on an outpatient basis. In stable condition. Flu COVID RSV were all negative. Patient's BNP was low no evidence for congestive heart failure. Differential Diagnosis Differential Diagnoses: The differential diagnosis associated with the presentation includes Admission/Observation Consideration of admission/observation: Escalation of care including admission/observation considered Lab Data [facility] Lab Attestation statement: I reviewed the patient's lab results. 05/13/23 03:37 05/13/23 04:54 Labs: Lab Results 05/13/23 05/13/23 Range/Units 03:37 04:54 WBC 6.7 (4.8-10.8) X10*3/uL RBC 4.71 (4.20-5.50) X10*6/uL Hgb 12.2 (12.0-16.0) g/dl Hct 38.3 (37.0-47.0) % MCV 81.3 (80.0-98.0) fL MCH 25.9 L (27.0-33.0) pg MCHC 31.9 (31.0-35.0) g/dl RDW 13.8 (11.0-16.0) % Plt Count 171 (160-400) X10*3/uL MPV 9.7 (9.4-12.3) fL Immature Gran % (Auto) 0.3 (0.0-0.4) % Neut % (Auto) 54.0 (45-73) % Lymph % (Auto) 30.1 (20-40) % [place] % (Auto) 11.9 H (2-11) % Eos % (Auto) 3.3 (0-4) % Baso % (Auto) 0.4 (0-2) % Lymph # (Auto) 2.0 (1.2-4.9) X10*3/uL [place] # (Auto) 0.8 (0.1-1.2) X10*3/uL Eos # (Auto) 0.2 (0.0-0.4) X10*3/uL Baso # (Auto) 0.0 (0.0-0.2) X10*3/uL Abs Immat Gran (auto) 0.02 (0.00-0.03) X10*3/uL Absolute Neuts (auto) 3.6 (2.0-8.3) x10*3/uL Absolute Nucleated RBC 0.000 (0.0-0.012) X10*3/uL Nucleated RBC % (auto) 0.0 (0.0-0.2) /100WBC D-Dimer High Sensitivty < 150 NG/ML Sodium 133 L 144 (135-145) mmol/L Potassium 5.8 H D 4.9 (3.3-5.1) mmol/L Chloride 111 H 113 H (96-108) mmol/L Carbon Dioxide 24 25 (22-29) mmol/L Anion Gap 4 L 11 L (12-20) BUN 17 H 17 H (9-16) mg/dL Creatinine 0.98 0.89 (0.5-1.4) mg/dL Estim Creat Clear Calc 48.0 52.9 Estimated GFR 56 > 60 Random Glucose 153 H 128 H (60-115) mg/dL Calcium 9.2 9.1 (8.4-10.2) mg/dL Troponin I High Sens 4.1 D 6.0 (<3.5-17.0) ng/L B-Natriuretic Peptide 66 (<100) pg/mL Influenza Type A (PCR) NEGATIVE (Negative) Influenza Type B (PCR) NEGATIVE (Negative) RSV RNA Qual (PCR) NEGATIVE (Negative) SARS-CoV-2 RNA (RT-PCR) NEGATIVE (Negative) Independent Interpretation I performed an independent interpretation of an: EKG (Sinus heart rate is 80 OH cast QTC within normal limits there is no acute ST segment elevation.) and Plain X-Ray (Grossly negative) Radiology Impression Discussion of test interpretation with radiology: I have reviewed the radiologist's reading. Independent Historian Clinical information obtained from an independent historian. History obtained from or confirmed by: Friend Discharge Plan Discharge Clinical Impression: Asthma with exacerbation Patient Disposition: Home, Self-Care Instructions: Asthma (DC), How to Use a Metered-Dose Inhaler (ED) Prescriptions: New azithromycin 250 mg tablet See Rx Instructions .ROUTE .COMPLEX Qty: 6 0RF Rx Instructions: take 500 mg today (day 1), then 250 mg for 4 days (days 2-5) prednisone 20 mg tablet 40 mg PO DAILY Qty: 10 0RF albuterol sulfate 90 mcg/actuation aerosol powdr breath activated 2 inh inhalation Q6H PRN (Reason: shortness of breath) Qty: 1 0RF No Action hydrochlorothiazide 12.5 mg tablet 12.5 mg PO DAILY Qty: 30 0RF lorazepam [Ativan] 1 mg tablet 1 mg PO BEDTIME PRN (Reason: anxiety) Qty: 20 0RF Referrals: Physician,Unknown J [Primary Care Provider] - 05/15/23
[2023-05-13 04:58] LABS: Troponin-I High Sensitivity 4.1 ng/L (<3.5-17.0)
[2023-05-13 05:01] LABS: B Type Natriuretic Peptide 66 pg/mL (<100)
[2023-05-13 05:07] VITALS: PULSE 90; RESP 18; O2SAT 97
[2023-05-13] MEDS: Albuterol/Iprat 2.5/0.5MG 3 ML AMPUL.NEB INHALE (05:07)
[2023-05-13] MEDS: Albuterol Sulfate (0.083%) 2.5 MG/3 ML VIAL.NEB 5 MG INHALE (05:07)
[2023-05-13 05:10] LABS: D Dimer High Sensitivity < 150 NG/ML
[2023-05-13] MEDS: methylPREDNISolone Sod Succ 125 MG/2 ML VIAL IVPUSH (05:10)
[2023-05-13 05:12] LABS: Anion Gap 11 (12-20); Blood Urea Nitrogen 17 mg/dL (9-16); Calcium 9.1 mg/dL (8.4-10.2); Carbon Dioxide 25 mmol/L (22-29); Chloride 113 mmol/L (96-108); Creatinine Clr Calc Pharmacy 52.9; Estimated Glomerular Filt Rate > 60; Glucose Random 128 mg/dL (60-115); Potassium 4.9 mmol/L (3.3-5.1); Sodium 144 mmol/L (135-145)
== END 2023-05-13 06:35 | disposition home or self-care (01) ==
PROVIDERS: Emergency Provider Emergency Medicine Emergency Medical Services
DX: J45.901 Unspecified asthma with (acute) exacerbation (principal); R06.02 Shortness of breath; R05.9 Cough, unspecified; Z20.822 Contact with and (suspected) exposure to COVID-19; Z20.828 Contact with and (suspected) exposure to other viral communicable diseases; Z79.899 Other long term (current) drug therapy
CPT/HCPCS: 0241U; 36415; 71046; 80048; 83880; 84484; 85025; 85379; 93005; 94640; 96374; 99284; 99285; J2930

== ENCOUNTER → 2023-05-13 03:09 | Outpatient (BNV) | payer MEDICARE, SELFPAY | PROVIDERS: Emergency Provider Emergency Medicine Emergency Medical Services; Visit Provider Internal Medicine Cardiovascular Disease | DX: R06.02 Shortness of breath (principal) | CPT/HCPCS: 93010 ==

== ENCOUNTER 2023-05-15 23:12 | Emergency (ER) | payer MEDICARE, SELFPAY ==
--- NOTE | ~2023-05-15 | XR_ITS ---
EXAMINATION: XR CHEST CLINICAL INFORMATION: Left chest pain. COMPARISON: Chest radiograph 05/13/2023. TECHNIQUE: Frontal view of the chest was obtained. FINDINGS: Stable prominence of the cardiomediastinal silhouette. Similar to slightly increased central peribronchial cuffing and diffuse interstitial prominence. No focal consolidation. No pleural effusion or pneumothorax. No acute osseous findings. Visualized upper abdomen is within normal limits. XR/XR chest 1V IMPRESSION: Similar to slightly increased central peribronchial cuffing and diffuse interstitial prominence which could be seen in the setting of an atypical infectious/inflammatory process.
--- NOTE | 2023-05-15 23:28 | ECG_ITS ---
Test Reason : DIZZINESS Blood Pressure : / mmHG Vent. Rate : 057 BPM Atrial Rate : 057 BPM P-R Int : 176 ms QRS Dur : 074 ms QT Int : 442 ms P-R-T Axes : 043 025 054 degrees QTc Int : 430 ms Sinus bradycardia Otherwise normal ECG When compared with ECG of 13-MAY-2023 03:09, No significant change was found Referred By: Wendy Gonzalez Electronically Signed By:STEVAN ARORA MD
[2023-05-15 23:54] VITALS: BP 166/65; BP 220/110; PULSE 56; PULSE 68; RESP 16; TEMP 36.8; O2SAT 96; O2SAT 99; BMI 29.9
[2023-05-15 23:59] VITALS: PULSE 59
--- NOTE | 2023-05-16 00:01 | ED.CHESTPAIN ---
HPI - Chest Pain General Chief Complaint: Chest Pain Stated Complaint: DIZZY,HIGH BP 220/120 PER EMS Time Seen by Provider: 05/15/23 23:21 Source: patient Mode of arrival: EMS Limitations: other (Malian speaking) History of Present Illness HPI narrative: Patient comes to the emergency room complaining of lightheadedness and high blood pressure. Patient's history has been taking via Supramed dermatology physician. Patient states that she takes hydrochlorothiazide 12.5 mg, losartan 50 mg, metoprolol 50 mg at bedtime. Patient states that she has noted that her blood pressure has been increasing for the last few days, after she was given a prescription of prednisone for her asthma exacerbation 3 days ago. Patient states that she has left-sided chest pressure, mild. Patient denies headache, no visual changes. Related Data Previous Rx's Medication Instructions Recorded hydrochlorothiazide 12.5 mg tablet 12.5 mg PO DAILY #30 tabs 09/19/22 lorazepam 1 mg tablet (Ativan) 1 mg PO BEDTIME PRN anxiety #20 12/21/22 tabs albuterol sulfate 90 mcg/actuation 2 inh inhalation Q6H PRN shortness 05/13/23 breath activated powder inhaler of breath #1 ea azithromycin 250 mg tablet See Rx Instructions PO .COMPLEX 05/13/23 upper resp infection #6 tabs prednisone 20 mg tablet 40 mg (2 x 20 mg) PO DAILY #10 tabs 05/13/23 Allergies Allergy/AdvReac Type Severity Reaction Status Date / Time No Known Allergies Allergy Verified 05/13/23 02:52 Review of Systems Review of Systems: Constitutional : No Weight loss, No Fever, No Chills, No Night Sweats, No Fatigue, No Malaise ENT/Mouth : No Hearing loss, No Ear Pain, No Nasal Congestion, No Sinus Pain, No Hoarseness, No sore throat, No Rhinorrhea, No Swallowing Difficulty Eyes: No Eye Pain, No Swelling, No Redness, No Foreign Body, No Discharge, No Vision Changes Cardiovascular : No Chest Pain, complaining of chest pressure , No SOB, No Dyspnea on Exertion, No Orthopnea, No Edema, No Palpitations Respiratory : No Cough, No Sputum, No Wheezing, No Smoke Exposure, No Dyspnea Gastrointestinal : No Nausea, No Vomiting, No Diarrhea, No Constipation, No abdominal Pain, No Hematochezia, No Melena Genitourinary : no irregular bleeding, No Dysuria, No Urinary Frequency, No Hematuria, No Urinary Incontinence, No Urgency, No Flank Pain, No Urinary Flow Changes, No Hesitancy Musculoskeletal : No joint pain, No Myalgias, No Joint Swelling Skin : No Skin Lesions, No rash Neuro : No Weakness, No Numbness, No Paresthesias, No Loss of Consciousness, No Dizziness, No Headache Psych : No Anxiety/Panic, No Depression, No SI/HI/AH/VH, No Social Issues, Heme/Lymph: No Bruising, No Bleeding,No Lymphadenopathy Endocrine : No Polyuria, No Polydipsia, No Temperature Intolerance [facility] Social History Social History Alcohol intake: never Smoked in Last 30 Days: No Use of substances other than those prescribed or required for medical reasons: No Advance Directives: No Advance Directives Information Provided: Yes Physical Exam Vital Signs: Vital Signs: Last Vital Signs Temp 98.0 F 05/16/23 02:47 Pulse 55 05/16/23 02:47 Resp 14 05/16/23 02:47 BP 130/56 L 05/16/23 02:47 Pulse Ox 97 05/16/23 02:47 O2 Del Method Room Air 05/16/23 02:47 BMI result Body Mass Index 29.9 Const: Other: Appearance: Alert. Oriented X3. No acute distress. Eyes: Pupils equal, round and reactive to light. ENT: Pharynx normal. Neck: Normal inspection. Neck supple. No lymph nodes noted. No crepitus CVS: Normal heart rate and rhythm. Pulses normal. Normal S1 and S2 Respiratory: No respiratory distress. Breath sounds normal. No Wheezing. No rales Abdomen: Soft and nontender. No rigidity. No distention. Skin: Skin warm and dry. Normal skin color. Normal skin turgor. Extremities: No lower extremity edema. No Lacerations. No Rash Neuro: Oriented X 3. No motor deficit. No sensory deficit. Moving all extremities. No slurred speech. CN 2 through 12 grossly intact Psych: calm, cooperative, normal affect Course Course Course Narrative: -all of patient's labs and imaging pending Medications Administered Discontinued Medications Generic Name Dose Route Start Last Admin Trade Name Freq PRN Reason Stop Dose Admin Amlodipine Besylate 10 mg 05/15/23 23:28 05/16/23 00:22 Amlodipine Besylate 10 Mg Tablet PO 05/15/23 23:29 10 mg ONCE ONE Administration Protocol Medical Decision Making Medical Decision Making [facility] Narrative: -my interpretation of EKG: Sinus bradycardia, heart rate 57, no ST segment depression or elevation, no T-wave inversion, QTC 430 -my interpretation of labs: Normal hematology, chemistry normal, troponin x2 negative -in the ED patient was giving a dose of amlodipine. Patient feeling much better, blood pressure 130/56. -I discussed with the patient that prednisone may increase her blood pressure, at this time, we will not change any of the doses upper meds. Patient instructed to have close follow-up with her PCP Differential Diagnosis Differential Diagnoses: The differential diagnosis associated with the presentation includes (Hypertension, hypertensive urgency, hypertensive emergency) Admission/Observation Consideration of admission/observation: Escalation of care including admission/observation considered (Given patient's history and vitals, admission was considered) Lab Data [facility] Lab Attestation statement: I reviewed the patient's lab results. 05/16/23 00:08 05/16/23 00:08 Labs: Lab Results 05/16/23 05/16/23 Range/Units 00:08 02:49 WBC 7.6 (4.8-10.8) X10*3/uL RBC 4.86 (4.20-5.50) X10*6/uL Hgb 12.5 (12.0-16.0) g/dl Hct 38.6 (37.0-47.0) % MCV 79.4 L (80.0-98.0) fL MCH 25.7 L (27.0-33.0) pg MCHC 32.4 (31.0-35.0) g/dl RDW 13.6 (11.0-16.0) % Plt Count 228 D (160-400) X10*3/uL MPV 9.3 L (9.4-12.3) fL Immature Gran % (Auto) 0.4 (0.0-0.4) % Neut % (Auto) 50.5 (45-73) % Lymph % (Auto) 38.4 (20-40) % [place] % (Auto) 9.9 (2-11) % Eos % (Auto) 0.5 (0-4) % Baso % (Auto) 0.3 (0-2) % Lymph # (Auto) 2.9 (1.2-4.9) X10*3/uL [place] # (Auto) 0.8 (0.1-1.2) X10*3/uL Eos # (Auto) 0.0 (0.0-0.4) X10*3/uL Baso # (Auto) 0.0 (0.0-0.2) X10*3/uL Abs Immat Gran (auto) 0.03 (0.00-0.03) X10*3/uL Absolute Neuts (auto) 3.8 (2.0-8.3) x10*3/uL Absolute Nucleated RBC 0.000 (0.0-0.012) X10*3/uL Nucleated RBC % (auto) 0.0 (0.0-0.2) /100WBC Sodium 142 (135-145) mmol/L Potassium 4.4 (3.3-5.1) mmol/L Chloride 107 (96-108) mmol/L Carbon Dioxide 28 (22-29) mmol/L Anion Gap 11 L (12-20) BUN 23 H (9-16) mg/dL Creatinine 0.93 (0.5-1.4) mg/dL Estim Creat Clear Calc 53.0 Estimated GFR 60 Random Glucose 129 H (60-115) mg/dL Calcium 9.6 (8.4-10.2) mg/dL Total Bilirubin 0.4 (0.0-1.0) mg/dL Direct Bilirubin 0.1 (0.0-0.5) mg/dL AST 26 (5-31) U/L ALT 31 (0-31) U/L Alkaline Phosphatase 99 (39-117) U/L Troponin I High Sens < 2.7 D 4.0 (<3.5-17.0) ng/L B-Natriuretic Peptide 143 H (<100) pg/mL Total Protein 7.7 (6.5-8.0) g/dL Albumin 4.1 (3.5-5.0) g/dL Independent Interpretation I performed an independent interpretation of an: EKG and Plain X-Ray (My interpretation of chest x-ray: No pneumonia) Radiology Impression Discussion of test interpretation with radiology: I have reviewed the radiologist's reading. Radiologist Impression: IMPRESSION: Similar to slightly increased central peribronchial cuffing and diffuse interstitial prominence which could be seen in the setting of an atypical infectious/inflammatory process. Critical Care Time Critical Care Time Critical Care Time: Yes Total Critical Care Time: 60 Attestation: I have personally provided critical care time. Time includes review of lab data, radiology results, discussion with consultants, and monitoring for potential decompensation. Intervention performed as documented. Discharge Plan Discharge Clinical Impression: Atypical chest pain, Hypertension Patient Disposition: Home, Self-Care Instructions: Hypertension (ED) Additional Instructions: Is likely that the prednisone made your blood pressure go up. Discontinue taking prednisone. No changes to her medications have been made. Please have a close follow-up with your primary care physician. Please follow-up with your primary care physician tomorrow. If you have any worsening or new symptoms, please return to the emergency room or call 911 Prescriptions: No Action hydrochlorothiazide 12.5 mg tablet 12.5 mg PO DAILY Qty: 30 0RF lorazepam [Ativan] 1 mg tablet 1 mg PO BEDTIME PRN (Reason: anxiety) Qty: 20 0RF azithromycin 250 mg tablet See Rx Instructions .ROUTE .COMPLEX Qty: 6 0RF Rx Instructions: take 500 mg today (day 1), then 250 mg for 4 days (days 2-5) prednisone 20 mg tablet 40 mg PO DAILY Qty: 10 0RF albuterol sulfate 90 mcg/actuation aerosol powdr breath activated 2 inh inhalation Q6H PRN (Reason: shortness of breath) Qty: 1 0RF
[2023-05-16 00:04] VITALS: BP 166/65; PULSE 54; RESP 14; O2SAT 97
[2023-05-16 00:14] LABS: MANUAL DIFF FLAG NO
[2023-05-16 00:16] LABS: Basophils Percent Auto 0.3 % (0-2); Eosinophils Percent Auto 0.5 % (0-4); Hematocrit 38.6 % (37.0-47.0); Hemoglobin 12.5 g/dl (12.0-16.0); Imm Gran Abs Auto 0.03 X10*3/uL (0.00-0.03); Imm Gran Pct Auto 0.4 % (0.0-0.4); Lymphocytes Absolute Auto 2.9 X10*3/uL (1.2-4.9); Lymphocytes Percent Auto 38.4 % (20-40); Mean Corpuscular HGB Conc 32.4 g/dl (31.0-35.0); Mean Corpuscular Hemoglobin 25.7 pg (27.0-33.0); Mean Corpuscular Volume 79.4 fL (80.0-98.0); Mean Platelet Volume 9.3 fL (9.4-12.3); Monocytes Absolute Auto 0.8 X10*3/uL (0.1-1.2); Monocytes Percent Auto 9.9 % (2-11); Neutrophils Absolute Auto 3.8 x10*3/uL (2.0-8.3); Neutrophils Percent Auto 50.5 % (45-73); Platelet Count 228 X10*3/uL (160-400); Red Blood Count 4.86 X10*6/uL (4.20-5.50); Red Cell Distribution Width 13.6 % (11.0-16.0); White Blood Count 7.6 X10*3/uL (4.8-10.8)
[2023-05-16] MEDS: amLODIPine Besylate 10 MG TABLET PO (00:22)
[2023-05-16 00:40] LABS: Alanine Aminotransferase 31 U/L (0-31); Albumin Level 4.1 g/dL (3.5-5.0); Alkaline Phosphatase 99 U/L (39-117); Anion Gap 11 (12-20); Aspartate Amino Transferase 26 U/L (5-31); Bilirubin Direct 0.1 mg/dL (0.0-0.5); Bilirubin Total 0.4 mg/dL (0.0-1.0); Blood Urea Nitrogen 23 mg/dL (9-16); Calcium 9.6 mg/dL (8.4-10.2); Carbon Dioxide 28 mmol/L (22-29); Chloride 107 mmol/L (96-108); Estimated Glomerular Filt Rate 60; Glucose Random 129 mg/dL (60-115); Potassium 4.4 mmol/L (3.3-5.1); Sodium 142 mmol/L (135-145); Total Protein 7.7 g/dL (6.5-8.0)
[2023-05-16 00:43] LABS: B Type Natriuretic Peptide 143 pg/mL (<100)
[2023-05-16 00:49] LABS: Troponin-I High Sensitivity < 2.7 ng/L (<3.5-17.0)
[2023-05-16 02:47] VITALS: BP 130/56; PULSE 55; RESP 14; TEMP 36.7; O2SAT 97
== END 2023-05-16 05:10 | disposition home or self-care (01) ==
PROVIDERS: Emergency Provider Emergency Medicine
DX: R07.89 Other chest pain (principal); R42 Dizziness and giddiness; R06.02 Shortness of breath; R00.1 Bradycardia, unspecified; I10 Essential (primary) hypertension; Z79.899 Other long term (current) drug therapy
CPT/HCPCS: 36415; 71045; 80048; 80076; 83880; 84484; 85025; 93005; 99283; 99285

== ENCOUNTER → 2023-05-15 23:28 | Outpatient (BNV) | payer MEDICARE, SELFPAY | PROVIDERS: Emergency Provider Emergency Medicine; Visit Provider Internal Medicine Cardiovascular Disease | DX: R00.1 Bradycardia, unspecified (principal) | CPT/HCPCS: 93010 ==